=== PATIENT | female | born 1960 | race Caucasian/White ===

== ENCOUNTER → 2016-09-29 | Outpatient (CLI) | payer BC ==
--- NOTE | 2016-09-29 16:37 | US ---
EXAMINATION TYPE: US pelvis complete transvag DATE OF EXAM: 09/29/2016 4:26 PM COMPARISON: on PACS CLINICAL HISTORY: N95.0 PMB. Patient states having blood in urine. No pain. TECHNIQUE: Transvaginal (TV) and Transabdominal (TA) Date of LMP: PM, EXAM MEASUREMENTS: Uterus: 5.9 x 3.8 x 1.7 cm Endometrial Stripe: 0.2 cm TECHNOLOGIST IMPRESSION: wnl 1. Uterus: Anteverted Heterogenous. Mid posterior fundal echogenic focus = 0.2 x 0.2 cm 2. Endometrium: wnl 3. Right Ovary: Obscured by overlying bowel gas 4. Left Ovary: Obscured by overlying bowel gas Spectral, color and waveform doppler imaging shows good arterial and venous flow within the ovaries ; there is no evidence for ovarian torsion. 5. Bilateral Adnexa: wnl 6. Posterior cul-de-sac: No free fluid Uterus is anteverted in shape an and somewhat small in size consistent with post menopausal age. Endo metrial stripe is not well seen and felt atrophic. No free fluid is noted. Neither ovary is clearly identified. No suspicious adnexal masses are seen. IMPRESSION: No significant finding is seen to account for patient's symptoms.
[2016-09-29 17:00] LABS: Appearance,Urine Clear (Clear); Bilirubin,Urine Negative (Negative); Glucose,Urine (UA) Negative (Negative); Ketones,Urine Negative (Negative); Leukocyte Esterase,Urine Negative (Negative); Nitrite,Urine Negative (Negative); PH, Urine 5.5 (5.0-8.0); Protein,Urine Negative (Negative); Specific Gravity,Urine 1.001 (1.001-1.035); UA Billing (MACRO vs. MICRO) CHEM; Urobilinogen,Urine <2.0 mg/dL (<2.0)
--- NOTE | 2016-09-30 14:00 | MM ---
Reason for exam: screening (asymptomatic). Last mammogram was performed 3 years ago. History: Patient is postmenopausal. Family history of breast cancer in paternal grandmother. Physical Findings: A clinical breast exam by your physician is recommended on an annual basis and results should be correlated with mammographic findings. MG Screening Mammo w CAD Bilateral CC and MLO view(s) were taken. Prior study comparison: September 25, 2013, bilateral digital screening mammo w/CAD. August 07, 2012, bilateral digital screening mammo w/CAD. April 12, 2011, bilateral digital screening mammo w/CAD. The breast tissue is heterogeneously dense. This may lower the sensitivity of mammography. No significant changes when compared with prior studies. ASSESSMENT: Negative, BI-RAD 1 RECOMMENDATION: Routine screening mammogram of both breasts in 1 year.
== END | disposition home or self-care (01) ==
LOC: RADUSMAIN 15:43
PROVIDERS: ATTEND Obstetrics & Gynecology
DX: Z12.31 Encounter for screening mammogram for malignant neoplasm of breast (principal); N95.0 Postmenopausal bleeding; R31.9 Hematuria, unspecified
CPT/HCPCS: 81003; 87086; 76856; 76830; G0202

== ENCOUNTER → 2017-01-06 | Outpatient (CLI) | payer OTHER ==
--- NOTE | 2017-01-06 09:57 | CT ---
EXAMINATION TYPE: CT thoracic spine wo con, CT lumbar spine wo con DATE OF EXAM: 01/06/2017 COMPARISON: 01/09/2016 and 10/17/2013 HISTORY: 55-year-old female scoliosis, multiple spine surgeries. TECHNIQUE: Contiguous axial scanning of the thoracic followed by the lumbar spine without IV contrast . Coronal and sagittal reconstructions performed. CT DLP: 593.8 (accession [id number]), 781.9 (accession [id number]) mGycm Automated exposure control for dose reduction was used. FINDINGS: THORACIC SPINE: There is a dextroconvex scoliosis centered at the lower thoracic spine with compensatory levoconvex c urvatures of the upper to mid thoracic and lumbar spines. There is bony ankylosis across the posterior elements extending from T3 downward. C5-C6 ACDF is prese nt. Posterior spinal fusion hardware extends from T11 down through S1. There is an area of 1.1 cm soft tissue nodularity within the left lateral spinal canal, possibly extr adural in location, axial image 36 and coronal image 37. T4 level. This does not significantly efface the thecal sac. There is some tissue thickening along the right paravertebral region and pleura measuring approximate ly 2.9 x 1.4 cm, axial image 44 and coronal image 38, at the T6 level. No associated bony destruction . New from 10/17/2013. At T1-T2, facet arthropathy causes a moderate left neuroforaminal stenosis. At T2-T3, facet arthropathy causes a moderate to severe right and mild left neuroforaminal stenosis. Otherwise, no significant foraminal compromise is seen On the right, facet arthropathy results in moderate to severe neuroforaminal stenosis T2-T3 and mild on the left. There is moderate neuroforaminal narrowing on the left at T1-T2. No spinal canal compromise. Tiny hiatal hernia. LUMBAR SPINE: Above-mentioned fusion changes involving osseous fusion of the posterior elements and metallic hardwa re down to the S1 level. On the right, bony hyperostotic changes cause mild narrowing of the L4-L5 neuroforamen. On the left, bony changes cause moderate narrowing of the T11-T12 neuroforamen and mild at L5-S1. There are fixed grade 1 anterolistheses at L3-L4 and L4-L5. Bulging disc especially left paracentral protrusion at L4-L5 causes mild thecal sac attenuation witho ut bay canal compromise. Disc may abut the traversing left L5 nerve root. No prevertebral or paravertebral soft tissue abnormality seen. Vertebral body heights are preserved. The right L5 and S1 screw tips project beyond the anterior cortex into the prevertebral soft tissues but the orthopedic hardware otherwise appears uncomplicated. IMPRESSION: THORACIC SPINE: 1. Rightward scoliosis along the lower thoracic spine with compensatory leftward scoliotic curvature is in the upper to mid thoracic and lumbar spine. 2. Posterior spinal fusion extending from T11 down through S1 with a bony ankylosis across the inspector semiconductor wafer ior elements from T3 downward. 3. Facet arthropathy causes moderate to severe right neuroforaminal stenosis at T2-T3 and moderate on the left at T1-T2. 4. Some paravertebral pleural based soft tissue thickening on the right measuring 2.9 x 1.4 cm at the T6 level appears new from 10/17/2013. While scarring is possible, other etiologies such as extramedull jalen hematopoiesis, inflammation, neurogenic/nerve sheath tumor, or other neoplasm are in the differen tial at this time. 5. A 1.1 cm soft tissue attenuating nodule within the left lateral spinal canal at the T4 level also appears new from 10/17/2013. This does not significantly compress the thecal sac. A meningocele, perine ural cyst, or nerve sheath tumor are possible. Consider contrast-enhanced thoracic spine MRI to furth er evaluate both of these findings. LUMBAR SPINE: 1. Stable posterior fusion changes. 2. Relatively similar lateral recess narrowing at L4-L5 with disc material probably abutting the rory ersing left L5 nerve root. 3. Moderate T11-T12 neuroforaminal narrowing on the left. 4. There is mild attenuation of the thecal sac at L4-L5 without bay canal compromise.
== END | disposition home or self-care (01) ==
LOC: RADCTMAIN 08:12
PROVIDERS: ATTEND Family Medicine
DX: M48.06 Spinal stenosis, lumbar region (principal); M99.72 Connective tissue and disc stenosis of intervertebral foramina of thoracic region; M43.24 Fusion of spine, thoracic region; M41.84 Other forms of scoliosis, thoracic region; M46.04 Spinal enthesopathy, thoracic region; Z98.1 Arthrodesis status
CPT/HCPCS: 72128; 72131